=== PATIENT | female | born 1945 | race Caucasian/White ===

== ENCOUNTER 2017-12-06 09:37 | Emergency (ER) | payer MEDICARE, BC ==
[2017-12-06] MEDS ORDERED: ONDANSETRON 4 MG/2 ML VIAL IVP STA (09:58)
[2017-12-06] MEDS ORDERED: SODIUM CHLORIDE 0.9% 1,000 ML IV STA (09:58)
--- NOTE | 2017-12-06 10:04 | ED ---
General Adult HPI - General Chief complaint: Nausea/Vomiting/Diarrhea Stated complaint: vomiting Time Seen by Provider: 12/06/17 09:45 Source: patient, RN notes reviewed Mode of arrival: wheelchair Limitations: no limitations - History of Present Illness Initial comments: This is a 72-year-old female presents to the emergency department with a past medical history significant for depression. Patient states she started new depression medication 1 week ago and since Friday she has been having vomiting and diarrhea. Patient states she stopped the medication on Friday but continues to have vomiting and diarrhea today. Patient denies any abdominal pain. Patient denies any recent use of antibiotics. Patient denies any fever chills. Patient denies any chest pain difficulty breathing or shortness of breath. Patient denies any headache patient denies numbness weakness. Patient denies lightheadedness or dizziness. Patient denies any dysuria hematuria urinary frequency. - Related Data Home Medications Medication Instructions Recorded Confirmed Citalopram Hydrobromide [CeleXA] 20 mg PO DAILY 09/28/13 07/12/15 Atorvastatin [Lipitor] 40 mg PO DAILY 07/12/15 07/12/15 Omeprazole [PriLOSEC] 40 mg PO DAILY 07/12/15 07/12/15 buPROPion HCL [Bupropion Xl] 150 mg PO DAILY 07/12/15 07/12/15 Previous Rx's Medication Instructions Recorded Ondansetron Odt [Zofran Odt] 4 mg PO Q8HR PRN #10 tab 12/06/17 Allergies Allergy/AdvReac Type Severity Reaction Status Date / Time sulfamethoxazole Allergy Rash/Hives Verified 12/06/17 09:48 [From Bactrim] trimethoprim [From Bactrim] Allergy Rash/Hives Verified 12/06/17 09:48 Review of Systems ROS Statement: Those systems with pertinent positive or pertinent negative responses have been documented in the HPI. ROS Other: All systems not noted in ROS Statement are negative. Past Medical History Past Medical History: Musculoskeletal Disorder Additional Past Medical History / Comment(s): depression History of Any Multi-Drug Resistant Organisms: None Reported Past Surgical History: Bowel Resection, Hysterectomy Additional Past Surgical History / Comment(s): breast augmentation, cataract sx Past Anesthesia/Blood Transfusion Reactions: No Reported Reaction Past Psychological History: Anxiety, Depression Smoking Status: Former smoker Past Alcohol Use History: Rare Past Drug Use History: None Reported - Past Family History Father Family Medical History: Cancer Additional Family Medical History / Comment(s): lung General Exam - General Exam Comments Initial Comments: GENERAL: Patient is well-developed and well-nourished. Patient is nontoxic and well- hydrated and is in mild distress. ENT: Neck is soft and supple. No significant lymphadenopathy is noted. Oropharynx is clear. Moist mucous membranes. EYES: The sclera were anicteric and conjunctiva were pink and moist. Extraocular movements were intact and pupils were equal round and reactive to light. Eyelids were unremarkable. PULMONARY: Unlabored respirations. Good breath sounds bilaterally. No audible rales rhonchi or wheezing was noted. CARDIOVASCULAR: There is a regular rate and rhythm without any murmurs gallops or rubs. ABDOMEN: Soft and nontender with normal bowel sounds. No palpable organomegaly was noted. There is no palpable pulsatile mass. SKIN: Skin is clear with no lesions or rashes and otherwise unremarkable. NEUROLOGIC: Patient is alert and oriented x3. Cranial nerves II through XII are grossly intact. Motor and sensory are also intact. Normal speech, volume and content. Symmetrical smile. MUSCULOSKELETAL: Normal extremities with adequate strength and full range of motion. No lower extremity swelling or edema. No calf tenderness. LYMPHATICS: No significant lymphadenopathy is noted PSYCHIATRIC: Normal psychiatric evaluation. Limitations: no limitations Course Vital Signs 12/06/17 12/06/17 09:46 10:48 Temperature 98.3 F Pulse Rate 80 78 Respiratory 20 16 Rate Blood Pressure 164/87 167/78 O2 Sat by Pulse 100 98 Oximetry Medical Decision Making - Medical Decision Making I will back into reevaluate the patient she was abdominal pain free and nausea free. Patient states she felt considerably better after we hydrated her and she was looking to go home at this point time. Patient states she'll talk to her primary medical care doctor about her new medication and go from there. - Lab Data Result diagrams: 12/06/17 10:08 12/06/17 10:08 Lab Results 12/06/17 12/06/17 12/06/17 Range/Units 10:08 10:08 11:00 WBC 5.0 (3.8-10.6) k/uL RBC 4.56 (3.80-5.40) m/uL Hgb 13.8 (11.4-16.0) gm/dL Hct 42.4 (34.0-46.0) % MCV 93.1 (80.0-100.0) fL MCH 30.2 (25.0-35.0) pg MCHC 32.5 (31.0-37.0) g/dL RDW 12.9 (11.5-15.5) % Plt Count 246 (150-450) k/uL Neutrophils % 53 % Lymphocytes % 34 % Monocytes % 6 % Eosinophils % 2 % Basophils % 1 % Neutrophils # 2.7 (1.3-7.7) k/uL Lymphocytes # 1.7 (1.0-4.8) k/uL Monocytes # 0.3 (0-1.0) k/uL Eosinophils # 0.1 (0-0.7) k/uL Basophils # 0.0 (0-0.2) k/uL Sodium 140 (137-145) mmol/L Potassium 3.8 (3.5-5.1) mmol/L Chloride 108 H (98-107) mmol/L Carbon Dioxide 20 L (22-30) mmol/L Anion Gap 12 mmol/L BUN 14 (7-17) mg/dL Creatinine 0.82 (0.52-1.04) mg/dL Est GFR (CKD-EPI)AfAm 82 (>60 ml/min/1.73 sqM) Est GFR (CKD-EPI)NonAf 71 (>60 ml/min/1.73 sqM) Glucose 92 (74-99) mg/dL Calcium 9.8 (8.4-10.2) mg/dL Total Bilirubin 0.8 (0.2-1.3) mg/dL AST 31 (14-36) U/L ALT 70 H (9-52) U/L Alkaline Phosphatase 84 (38-126) U/L Total Protein 6.9 (6.3-8.2) g/dL Albumin 4.1 (3.5-5.0) g/dL Amylase 62 (30-110) U/L Lipase 44 (23-300) U/L Urine Color Light Yellow Urine Appearance Clear (Clear) Urine pH 6.0 (5.0-8.0) Ur Specific [place] 1.009 (1.001-1.035) Urine Protein Negative (Negative) Urine Glucose (UA) Negative (Negative) Urine Ketones 2+ H (Negative) Urine Blood Negative (Negative) Urine Nitrite Negative (Negative) Urine Bilirubin Negative (Negative) Urine Urobilinogen <2.0 (<2.0) mg/dL Ur Leukocyte Esterase Negative (Negative) Disposition Clinical Impression: Adverse effects of medication, Acute vomiting Disposition: HOME SELF-CARE Condition: Good Instructions: Acute Nausea and Vomiting (ED) Prescriptions: Ondansetron Odt [Zofran Odt] 4 mg PO Q8HR PRN #10 tab PRN Reason: Nausea Is patient prescribed a controlled substance at d/c from ED?: No Referrals: Carla Connell III, MD [Primary Care Provider] - 1-2 days Time of Disposition: 11:40
[2017-12-06 10:24] LABS: Basophils % (A) 1 %; Eosinophils # (A) 0.1 k/uL (0-0.7); Eosinophils % (A) 2 %; HCT 42.4 % (34.0-46.0); HGB 13.8 gm/dL (11.4-16.0); Lymphocytes # (A) 1.7 k/uL (1.0-4.8); Lymphocytes % (A) 34 %; MCH 30.2 pg (25.0-35.0); MCHC 32.5 g/dL (31.0-37.0); MCV 93.1 fL (80.0-100.0); Mean Platelet Volume 6.4; Monocytes # (A) 0.3 k/uL (0-1.0); Monocytes % (A) 6 %; Neutrophils # (A) 2.7 k/uL (1.3-7.7); Neutrophils % (A) 53 %; Platelet Count 246 k/uL (150-450); RBC 4.56 m/uL (3.80-5.40); RDW 12.9 % (11.5-15.5)
[2017-12-06 10:38] LABS: Albumin 4.1 g/dL (3.5-5.0); Calcium 9.8 mg/dL (8.4-10.2); Potassium 3.8 mmol/L (3.5-5.1); Total Bilirubin 0.8 mg/dL (0.2-1.3); Total Protein 6.9 g/dL (6.3-8.2)
[2017-12-06 11:03] VITALS: RESP 16
[2017-12-06 11:32] LABS: Appearance,Urine Clear (Clear); Bilirubin,Urine Negative (Negative); Blood,Urine Negative (Negative); Color,Urine Light Yellow; Glucose,Urine (UA) Negative (Negative); Ketones,Urine 2+ (Negative); Leukocyte Esterase,Urine Negative (Negative); Nitrite,Urine Negative (Negative); Protein,Urine Negative (Negative); Specific Gravity,Urine 1.009 (1.001-1.035); Urobilinogen,Urine <2.0 mg/dL (<2.0)
[2017-12-06 12:19] VITALS: BP 165/74; PULSE 81; TEMP 98.4
== END 2017-12-06 12:00 | disposition home or self-care (01) ==
LOC: EC 09:37
DX: R11.10 Vomiting, unspecified (principal); T43.205A Adverse effect of unspecified antidepressants, initial encounter; R19.7 Diarrhea, unspecified; F32.9 Major depressive disorder, single episode, unspecified; F41.9 Anxiety disorder, unspecified; Z87.891 Personal history of nicotine dependence; Z79.899 Other long term (current) drug therapy; Z88.2 Allergy status to sulfonamides; Z90.49 Acquired absence of other specified parts of digestive tract
CPT/HCPCS: 36415; 80053; 82150; 83690; 85025; 81003; 99284; 96374; 96361 ×2; J2405

== ENCOUNTER → 2018-06-25 | Outpatient (CLI) | payer MEDICARE, BC ==
--- NOTE | 2018-07-01 09:21 | P.ARTDOP ---
Arterial Doppler LOWER EXTREMITY ARTERIAL DOPPLER: DATE OF SERVICE: 06/25/2018 Reason for study: Venous stasis disease. Doppler waveforms: Multiphasic bilaterally throughout. Pulse volume recording: Normal configuration. Pressure gradients: None. Ankle-brachial indices: Greater than 1 bilaterally. Toe pressures: [] on the right, [] on the left Impression: Normal study.
== END ==
LOC: RADUSWWP 09:29
PROVIDERS: ATTEND Family Medicine
DX: I73.9 Peripheral vascular disease, unspecified (principal)
CPT/HCPCS: 93923

== ENCOUNTER → 2018-07-03 | Outpatient (CLI) | payer MEDICARE, BC ==
[~2018-07-03] MED LIST: DENOSUMAB 60 MG/ML 1 ML SYRINGE SQ ONE
[2018-07-03 11:33] VITALS: BP 133/70; PULSE 71; RESP 16; TEMP 97.7
== END | disposition home or self-care (01) ==
LOC: PROCWHC3 10:40
PROVIDERS: ATTEND Family Medicine
DX: M81.0 Age-related osteoporosis without current pathological fracture (principal)
CPT/HCPCS: 96372; J0897

== ENCOUNTER → 2019-01-12 | Outpatient (CLI) | payer MEDICARE, BC ==
[~2019-01-12] MED LIST changes: +DENOSUMAB 60 MG/ML 1 ML SYRINGE SQ NR; -DENOSUMAB 60 MG/ML 1 ML SYRINGE SQ ONE
[2019-01-12 14:11] VITALS: BP 147/83; PULSE 71; RESP 16; TEMP 98.2
== END | disposition home or self-care (01) ==
LOC: PROCWHC3 12:46
PROVIDERS: ATTEND Family Medicine
DX: M81.0 Age-related osteoporosis without current pathological fracture (principal)
CPT/HCPCS: 96372; J0897

== ENCOUNTER → 2019-09-23 | Outpatient (CLI) | payer MEDICARE, BC ==
[2019-09-23 11:34] VITALS: BP 151/79; PULSE 82; RESP 16; TEMP 98.5
== END | disposition home or self-care (01) ==
LOC: PROCWHC3 11:23
PROVIDERS: ATTEND Family Medicine
DX: M81.0 Age-related osteoporosis without current pathological fracture (principal)
CPT/HCPCS: 96372; J0897

== ENCOUNTER → 2019-12-08 | Outpatient (CLI) | payer MEDICARE, BC ==
--- NOTE | 2019-12-08 12:44 | XR ---
EXAMINATION TYPE: XR chest 2V DATE OF EXAM: 12/08/2019 COMPARISON: 04/20/2011 HISTORY: 74-year-old female with cough TECHNIQUE: Frontal and lateral views FINDINGS: Densely calcified bilateral breast implants. Heart normal size. Aorta and pulmonary vasculature withi n normal limits. No consolidation or pleural effusion seen. Cholecystectomy clips. IMPRESSION: Densely calcified bilateral breast implants. No acute cardiopulmonary process seen.
== END | disposition home or self-care (01) ==
LOC: RADXRMAIN 12:07
PROVIDERS: ATTEND Family Medicine
DX: R05 Cough (principal); Z98.82 Breast implant status
CPT/HCPCS: 71046

== ENCOUNTER → 2019-12-21 | Outpatient (CLI) | payer MEDICARE, BC ==
--- NOTE | 2019-12-21 09:13 | CT ---
EXAMINATION TYPE: CT chest w con DATE OF EXAM: 12/21/2019 COMPARISON: Chest x-ray December 08, 2019 HISTORY: Cough CT DLP: 473 mGycm. Automated Exposure Control for Dose Reduction was Utilized. TECHNIQUE: CT scan of the thorax is performed following with IV Contrast, patient injected with 80 m L of Isovue 300. FINDINGS: LUNGS: Mild linear and dependent atelectasis towards the diaphragm. No suspicious focal consolidation or groundglass opacity. No concerning pulmonary nodules or masses. Slightly elevated left hemidiaphr agm. There is no pleural effusion or pneumothorax seen. The tracheobronchial tree is patent. MEDIASTINUM: There are no greater than 1 cm hilar or mediastinal lymph nodes. No cardiomegaly or pe ricardial effusion is seen. Coronary artery calcifications are present which is noted marker for und erlying coronary artery disease. OTHER: Cholecystectomy clips noted. S-shaped scoliosis with multilevel mild to moderate spurring in t he spine. There are rim calcified bilateral subglandular implants. Some lobulated low dense material along the implant margin favors fibroglandular tissue though is martir rly isodense to the central portion of the implant making periImplant fluid in the differential. Christine elate clinically along with mammogram and ultrasound is advised. For reference lobulated area medial to the right breast implant noted coronal image 4. IMPRESSION: 1. No suspicious acute pulmonary process. 2. Attention to bilateral breasts as detailed above. Clinical correlation and follow-up advised.
== END | disposition home or self-care (01) ==
LOC: RADCTMAIN 06:59
PROVIDERS: ATTEND Internal Medicine Geriatric Medicine
DX: R05 Cough (principal)
CPT/HCPCS: 82565; 84520; 71260; 36415; Q9967

== ENCOUNTER → 2020-01-26 | Day surgery (SDC) | payer MEDICARE, BC ==
[2020-01-13 11:06] VITALS: BMI 25.4
[2020-01-26 06:55] VITALS: BP 133/62; PULSE 76; RESP 16; TEMP 97.8
--- NOTE | 2020-02-08 08:11 | CDI ---
Date: 02.08.2020 CDS/Data Collection Technician Name: Danna Vela Phone: If any questions, call [facility] [employer] at [phone] Patient Name: Susanna Duarte Admit Date 01.26.20 Discharge Date: 01.26.20 ATTENTION: The [facility] Coding Staff appreciate your assistance in clarifying documentation. Please respond to the clarification below the line at the bottom and electronically sign. The [facility] Coding staff will review the response and follow-up if needed. Please note: Queries are made part of the Legal Health Record. If you have any questions, please contact the [employer]. Dear Dr. Lozano In order to code to the greatest specificity and for the greatest reimbursement I need the following information: On the Manometry/PH 24 hr study it is missing the Impression/Diagnosis. Please document. Thank you for your kind consideration. MTDD
--- NOTE | 2020-02-23 10:56 | PCN ---
PROCEDURE NOTE DATE OF PROCEDURE: 01/26/2020 PROCEDURE PERFORMED: Impedance, reflex monitoring. PREOPERATIVE DIAGNOSIS: Chronic cough. REQUESTING PHYSICIAN: Dr. Larson and Dr. Johnson. BRIEF HISTORY: Patient is a 74-year-old white female with history of GERD and chronic cough on omeprazole 20 mg daily, despite which continues to have persistent cough, hence scheduled for reflux monitoring study. PROCEDURE IN DETAIL: The probe was passed from the external nostril after adequate calibration, was gently advanced into the esophagus and was positioned about the lower esophageal sphincter. This study was performed for a total of 12 hours, 29 minutes. Following are the study results: 1. Acid exposure A, upright reflux 0.1%, the common reflux 0.2%, total reflux 1.2% (Normal less than 4.2%). 2. Syd DeMeester score analysis for acid exposure is 1.1 (normal less than 14.7.). 3. Non acid reflux total episodes 132, upright episodes 40, drip episodes were 92. (Normal less than 73). 4. Symptom correlation with reflux: A: Cough 98%, Heartburn 95%. INTERPRETATION: The above ambulatory pH study shows no significant evidence of acid reflux episodes. However, the patient had several of non-acid reflux episodes that correlated with chronic cough. Of note, the patient has been on Prilosec 20 mg daily during the study. Indicating that she does have an adequate acid suppressive at this time. MMODL / IJN: [id number] /
== END ==
LOC: ORWHC2ENDO 06:38
PROVIDERS: ATTEND Internal Medicine Gastroenterology
DX: K21.9 Gastro-esophageal reflux disease without esophagitis (principal)
CPT/HCPCS: 91038

== ENCOUNTER → 2020-02-03 | Outpatient (CLI) | payer MEDICARE, BC ==
--- NOTE | 2020-02-03 14:22 | USB ---
Reason for exam: clinical finding. History: Patient is postmenopausal. Silicone gel implants in both breasts. Silicone gel implant in the left breast. Silicone gel implant in the right breast. 3 excisional biopsies of the right breast. Took estrogen for 29 years. Indicated problem(s): palpable abnormality in both breasts. Physical Findings: Nurse did not find any significant physical abnormalities on exam. US Breast BILAT Right complete breast ultrasound includes all four quadrants, the retroareolar region and axilla. Finding demonstrates a 1.2 x 1.3 x 0.2cm mixed lesion at 11 o'clock. Left complete breast ultrasound includes all four quadrants, the retroareolar region and axilla. Finding demonstrates no cystic or solid lesion seen. These results were verbally communicated with the patient and result sheet given to the patient on 02/03/20. ASSESSMENT: Probably benign, BI-RAD 3 RECOMMENDATION: Ultrasound of the right breast in 6 months.
== END | disposition home or self-care (01) ==
LOC: RADUSWWP 12:00
PROVIDERS: ATTEND Family Medicine
DX: I73.9 Peripheral vascular disease, unspecified (principal)

== ENCOUNTER → 2020-03-03 | Outpatient (CLI) | payer MEDICARE, BC ==
--- NOTE | 2020-03-08 13:19 | P.ARTDOP ---
Arterial Doppler LOWER EXTREMITY ARTERIAL DOPPLER: DATE OF SERVICE: 03/03/2020 Reason for study: Suspected vascular disease. Doppler waveforms: Multiphasic bilaterally throughout. Pulse volume recording: []. Pressure gradients: None. Ankle-brachial indices: Greater than 1 bilaterally. Toe brachial indices: 0.88 on the right, 0.77 on the left Impression: Normal study.
== END | disposition home or self-care (01) ==
LOC: RADUSWWP 13:57
PROVIDERS: ATTEND Family Medicine
DX: I73.9 Peripheral vascular disease, unspecified (principal)
CPT/HCPCS: 93922

== ENCOUNTER → 2020-03-30 | Outpatient (CLI) | payer MEDICARE, BC ==
[2020-03-30 11:10] VITALS: BP 151/78; PULSE 85; RESP 16; TEMP 98.1
== END | disposition home or self-care (01) ==
LOC: PROCWHC3 10:46
PROVIDERS: ATTEND Family Medicine
DX: M81.0 Age-related osteoporosis without current pathological fracture (principal)
CPT/HCPCS: 96372; J0897

== ENCOUNTER → 2020-08-28 | Outpatient (CLI) | payer MEDICARE, BC ==
--- NOTE | 2020-08-29 10:19 | USB ---
Reason for exam: follow-up at short interval from prior study. History: Patient is postmenopausal. Silicone gel implants in both breasts. Silicone gel implant in the left breast. Silicone gel implant in the right breast. 3 excisional biopsies of the right breast. Took estrogen for 29 years. Physical Findings: Nurse Summary: right palpable 1 x 0.5cm, movable, bilateral firm nonmovable implants (nurse ts). US Breast RT Right complete breast ultrasound includes all four quadrants, the retroareolar region and axilla. Finding demonstrates a 0.9 x 1.3 x 0.2cm oval, hypoechoic lesion at 11 o'clock and a 0.9 x 1.4 x 1.0cm oval lymph node at the axilla. These results were verbally communicated with the patient and result sheet given to the patient on 08/28/20. ASSESSMENT: Benign, BI-RAD 2 RECOMMENDATION: Follow-up diagnostic mammogram of both breasts in 6 months.
== END | disposition home or self-care (01) ==
LOC: RADUSWWP 14:47
PROVIDERS: ATTEND Family Medicine
DX: N64.59 Other signs and symptoms in breast (principal); Z78.0 Asymptomatic menopausal state

== ENCOUNTER → 2020-09-29 | Outpatient (CLI) | payer MEDICARE, BC ==
[2020-09-29 13:14] VITALS: BP 131/73; PULSE 86; RESP 18; TEMP 98.2
[2020-09-29] MEDS: DENOSUMAB 60 MG/ML 1 ML SYRINGE SQ NR (13:20)
== END ==
LOC: PROCWHC3 12:50
PROVIDERS: ATTEND Family Medicine
DX: M81.0 Age-related osteoporosis without current pathological fracture (principal); Z87.891 Personal history of nicotine dependence; Z88.2 Allergy status to sulfonamides
CPT/HCPCS: 96372; J0897

== ENCOUNTER → 2020-10-16 | Outpatient (CLI) | payer MEDICARE, BC ==
--- NOTE | 2020-10-16 15:58 | BD ---
EXAMINATION TYPE: Axial Bone Density DATE OF EXAM: 10/16/2020 COMPARISON: NONE CLINICAL HISTORY: Height: 59.5 IN Weight: 131 LBS FRAX RISK QUESTIONS: Secondary Osteoporosis: 3. Menopause before 45: TOTAL HYST AGE 25 RISK FACTORS HISTORY OF: Family History of Osteoporosis: SELF Active: YES Postmenopausal woman: TOTAL HYST AGE 25 Take estrogen and/or progesterone medications: NOT NOW How long: TOOK FOR 5 YEARS AFTER HYSTERECTOMY MEDICATIONS: Osteoporosis Medications: YES Which medication: Prolia How Lon YEARS Additional Medications: PROLIA, VIT D, BLOOD PRESSURE MED, ANTI DEPRESSANT, ANTI DEPRESSANT BOOSTER, VIT B12, EXAM MEASUREMENTS: Bone mineral densitometry was performed using the [employer] System. Bone mineral density as measured about the Lumbar spine is: ----- L1-L4(G/cm2): 0.972 T Score Values are as follows: ----- L2: -2.6 ----- L3: -1.5 ----- L4: -0.7 ----- L1-L4: -1.7 Bone mineral density BASELINE Bone mineral density about the R hip (g/cm2): 0.774 Bone mineral density about the L hip (g/cm2): 0.742 T Score values are as follows: -----R Neck: -1.9 -----L Neck: -2.1 -----R Total: -2.0 -----L Total: -2.4 Bone mineral density BASELINE IMPRESSION: Osteopenia. NOTE: T-SCORE=SD OF THE YOUNG ADULT MEAN.
== END | disposition home or self-care (01) ==
LOC: RADBDWWP 12:16
PROVIDERS: ATTEND Family Medicine
DX: M85.80 Other specified disorders of bone density and structure, unspecified site (principal); Z78.0 Asymptomatic menopausal state
CPT/HCPCS: 77080

== ENCOUNTER → 2021-03-20 | Outpatient (CLI) | payer MEDICARE, BC ==
--- NOTE | 2021-03-20 12:22 | MM ---
Reason for exam: additional evaluation requested from prior study. Last mammogram was performed 21 years and 5 months ago. History: Patient is postmenopausal. Silicone gel implants in both breasts. Silicone gel implant in the left breast. Silicone gel implant in the right breast. 3 excisional biopsies of the right breast. Took estrogen for 29 years. Physical Findings: Nurse did not find any significant physical abnormalities on exam. MG 3D Diag Mammo Imp W/Cad GAVIN Bilateral CC, MLO, and ID view(s) were taken. Prior study comparison: August 28, 2020, right breast US breast RT. No suspicious calcifications or masses. Bilateral implants demonstrate stable leak. These results were verbally communicated with the patient and result sheet given to the patient on 03/20/21. ASSESSMENT: Benign, BI-RAD 2 RECOMMENDATION: Follow-up diagnostic mammogram of both breasts in 1 year.
== END | disposition home or self-care (01) ==
LOC: RADMAMWWP 09:25
PROVIDERS: ATTEND Family Medicine
DX: R92.8 Other abnormal and inconclusive findings on diagnostic imaging of breast (principal); Z78.0 Asymptomatic menopausal state
CPT/HCPCS: 77066; G0279; 77062

== ENCOUNTER → 2021-03-27 | Day surgery (SDC) | payer MEDICARE, BC ==
[2021-03-20 17:07] VITALS: BMI 25.0
[~2021-03-27] MED LIST changes: +ASPIRIN 81 MG PO SCH; +ATORVASTATIN 40 MG TAB PO SCH; +BENZOCAINE SPRAY 1 CAN TOPICAL ONE; +CHOLECALCIFEROL 25 MCG (1000 IU) TABLET PO SCH; +CITALOPRAM HYDROBROMIDE 20 MG TAB PO SCH; +CYANOCOBALAMIN 500 MCG TAB PO SCH; -DENOSUMAB 60 MG/ML 1 ML SYRINGE SQ NR; +DENOSUMAB 60 MG/ML 1 ML SYRINGE SQ SCH; +LOSARTAN 50 MG TAB PO SCH; +PANTOPRAZOLE 40 MG TABLET PO SCH; +SODIUM CHLORIDE 0.9% 1,000 ML IV SCH; +SODIUM CHLORIDE 0.9% 500 ML 500 ML IV ONE; +amLODIPine 5 MG TAB PO SCH; +buPROPion SR 150 MG TABLET.ER PO SCH; +buPROPion XL 150 MG TAB.ER.24H PO SCH; +fentaNYL (PF) 50 MCG/ML 2 ML AMP IV ONE
[2021-03-27 06:38] VITALS: TEMP 97.9
[2021-03-27] MEDS: MIDAZOLAM 2 MG/2 ML VIAL IV ONE ×2 (07:11→07:15)
[2021-03-27 08:00] VITALS: RESP 16
--- NOTE | 2021-03-27 11:14 | ECHOT ---
TRANSESOPHAGEAL ECHOCARDIOGRAM INDICATION: Evaluation of mitral valve. PROCEDURE DESCRIPTION: After explaining the procedure to the patient, its risks and complications, blood pressure, heart rate and O2 saturation were monitored. The throat was sprayed with Cetacaine. She received 2 mg intravenous Versed, 50 mcg intravenous fentanyl. The probe was introduced into the esophagus without difficulty. Images were obtained. Following that, the probe was removed. There was no immediate complication. FINDINGS: Left atrial size is normal. Left atrial appendage is normal. Left ventricular size is normal. The left ventricular systolic function is 50% to 55%. Chiari network was noted in the right atrium. The aortic valve appears to be normal. Mitral valve revealed mild thickening of the mitral valve leaflets with mild myxomatous changes. Tricuspid valve is normal. Descending thoracic aorta appears to be normal. Contrast bubble study revealed no shunting across the interatrial septum. No pericardial effusion was noted. Pulse wave and color Doppler were obtained and revealed mild tricuspid with moderate central multiple-jet mitral regurgitation. No shunting was noted by color Doppler study. CONCLUSION: 1. Normal left ventricular size with ejection fraction 50% to 55%. 2. Thickened mitral valve leaflets with mild myxomatous changes and evidence of moderate multiple-jet central mitral regurgitation. 3. Mild tricuspid regurgitation. 4. No shunting across the interatrial septum. 5. No pericardial effusion. MMODL / IJN: [id number] /
[2021-03-27 11:17] VITALS: BP 144/68; PULSE 64
== END | disposition home or self-care (01) ==
LOC: CATHCVL 05:53
PROVIDERS: ATTEND Internal Medicine Interventional Cardiology
DX: I08.1 Rheumatic disorders of both mitral and tricuspid valves (principal); I44.7 Left bundle-branch block, unspecified; E78.2 Mixed hyperlipidemia; I10 Essential (primary) hypertension; Z20.822 Contact with and (suspected) exposure to COVID-19; Z72.0 Tobacco use; Z82.49 Family history of ischemic heart disease and other diseases of the circulatory system; Z79.82 Long term (current) use of aspirin; Z79.899 Other long term (current) drug therapy; Z88.2 Allergy status to sulfonamides
CPT/HCPCS: 93312; 93320; 93325; 87635; J2250; J3010

== ENCOUNTER → 2021-05-25 | Outpatient (CLI) | payer MEDICARE, BC ==
[~2021-05-25] MED LIST changes: -ASPIRIN 81 MG PO SCH; -ATORVASTATIN 40 MG TAB PO SCH; -BENZOCAINE SPRAY 1 CAN TOPICAL ONE; -CHOLECALCIFEROL 25 MCG (1000 IU) TABLET PO SCH; -CITALOPRAM HYDROBROMIDE 20 MG TAB PO SCH; -CYANOCOBALAMIN 500 MCG TAB PO SCH; +DENOSUMAB 60 MG/ML 1 ML SYRINGE SQ NR; -DENOSUMAB 60 MG/ML 1 ML SYRINGE SQ SCH; -LOSARTAN 50 MG TAB PO SCH; -PANTOPRAZOLE 40 MG TABLET PO SCH; -SODIUM CHLORIDE 0.9% 1,000 ML IV SCH; -SODIUM CHLORIDE 0.9% 500 ML 500 ML IV ONE; -amLODIPine 5 MG TAB PO SCH; -buPROPion SR 150 MG TABLET.ER PO SCH; -buPROPion XL 150 MG TAB.ER.24H PO SCH; -fentaNYL (PF) 50 MCG/ML 2 ML AMP IV ONE
[2021-05-25 10:49] VITALS: BP 141/68; PULSE 78; RESP 16; TEMP 97.8
== END ==
LOC: PROCWHC3 10:20
PROVIDERS: ATTEND Family Medicine
DX: M81.0 Age-related osteoporosis without current pathological fracture (principal); Z87.891 Personal history of nicotine dependence; Z88.2 Allergy status to sulfonamides

== ENCOUNTER 2021-10-31 15:19 | Emergency (ER) | payer MEDICARE, BC ==
--- NOTE | 2021-10-31 16:22 | ED ---
General Adult HPI - General Chief complaint: Upper Respiratory Infection Stated complaint: covid+, sent by PCP Time Seen by Provider: 10/31/21 15:56 Source: patient Mode of arrival: ambulatory Limitations: no limitations - History of Present Illness Initial comments: Dictation was produced using [employer] dictation software. please excuse any grammatical, word or spelling errors. Chief Complaint: Patient is 76-year-old female told to come to the emergency department for evaluation for respiratory infectious symptoms History of Present Illness: Patient's 76-year-old female who is told to come to the emergency department for concerns of COVID-19. Patient has been around family members all tested positive for rhinovirus. She was sick for proximally 7 days. She had a conversation with a primary care doctor and was instructed to come to the emergency department for evaluation. Patient has been having productive cough, fever. She did have some symptoms of diarrhea however that all resolved on its own. She likely had contracted illness from family. Patient denies any history of COPD or asthma. The ROS documented in this emergency department record has been reviewed and confirmed by me. Those systems with pertinent positive or negative responses have been documented in the HPI. All other systems are other negative and/or noncontributory. PHYSICAL EXAM: General Impression: Alert and oriented x3, not in acute distress HEENT: Normocephalic atraumatic, extra-ocular movements intact, pupils equal and reactive to light bilaterally, mucous membranes moist. Cardiovascular: Heart regular rate and rhythm Chest: Able to complete full sentences, no retractions, no tachypnea Abdomen: abdomen soft, non-tender, non-distended, no organomegaly Musculoskeletal: Pulses present and equal in all extremities, no peripheral edema Motor: no focal deficits noted Neurological: CN II-XII grossly intact, no focal motor or sensory deficits noted Skin: Intact with no visualized rashes Psych: Normal affect and mood ED course: 76-year-old well-appearing female with minimal comorbidities presents to the emergency department for symptoms of respiratory infectious symptoms. Vital signs upon arrival are within acceptable limits. Patient is well- appearing. Patient not showing any signs of respiratory distress patient is not hypoxic or tachypneic. Patient positive for COVID-19. Patient meets criteria for monoclonal antibody infusion. Patient discussed with risk and benefits for monoclonal antibody infusion. Patient is agreeable. Patient given infusion. Patient discharged. - Related Data Home Medications Medication Instructions Recorded Confirmed Atorvastatin [Lipitor] 40 mg PO HS 07/12/15 05/25/21 buPROPion HCL [Bupropion Xl] 300 mg PO QAM 07/12/15 05/25/21 Denosumab [Prolia] 60 mg SQ Q180D 07/03/18 05/25/21 Cholecalciferol [Vitamin D3 (25 1,000 unit PO DAILY 01/12/19 05/25/21 Mcg = 1000 Iu)] Cyanocobalamin (Vitamin B-12) 1,000 mcg PO DAILY 01/12/19 05/25/21 [Vitamin B-12] amLODIPine [Norvasc] 5 mg PO DAILY 09/23/19 05/25/21 Aspirin [Adult Low Dose Aspirin EC] 81 mg PO DAILY 01/13/20 05/25/21 Citalopram Hydrobromide 20 mg PO DAILY 01/13/20 05/25/21 [Citalopram HBr] Losartan [Cozaar] 50 mg PO HS 01/13/20 05/25/21 Omeprazole 20 mg PO DAILY 01/13/20 05/25/21 buPROPion HCL [buPROPion HCL SR] 150 mg PO HS 01/13/20 05/25/21 traZODone HCL [TraZODone HCl] 50 mg PO DAILY 05/25/21 05/25/21 Allergies Allergy/AdvReac Type Severity Reaction Status Date / Time sulfamethoxazole Allergy Rash/Hives Verified 10/31/21 15:40 [From Bactrim] trimethoprim [From Bactrim] Allergy Rash/Hives Verified 10/31/21 15:40 Review of Systems ROS Statement: Those systems with pertinent positive or pertinent negative responses have been documented in the HPI. ROS Other: All systems not noted in ROS Statement are negative. Past Medical History Past Medical History: GERD/Reflux, Hyperlipidemia, Hypertension, Musculoskeletal Disorder Additional Past Medical History / Comment(s): hx of chronic cough, osteoporosis History of Any Multi-Drug Resistant Organisms: None Reported Past Surgical History: Bowel Resection, Breast Surgery, Cholecystectomy, Hysterectomy Additional Past Surgical History / Comment(s): breast augmentation, cataract sx Past Anesthesia/Blood Transfusion Reactions: No Reported Reaction Past Psychological History: Anxiety, Depression Smoking Status: Former smoker Past Alcohol Use History: None Reported Past Drug Use History: None Reported - Past Family History Father Family Medical History: Cancer Additional Family Medical History / Comment(s): lung General Exam Limitations: no limitations Course Vital Signs 10/31/21 15:37 Temperature 97.8 F Pulse Rate 78 Respiratory 16 Rate Blood Pressure 124/69 O2 Sat by Pulse 96 Oximetry Medical Decision Making - Lab Data Lab Results 10/31/21 Range/Units 15:43 Coronavirus (PCR) Detected A (Not Detectd) Disposition Clinical Impression: Coronavirus infection Disposition: HOME SELF-CARE Condition: Good Instructions (If sedation given, give patient instructions): Coronavirus Disease 2019 (COVID-19) Is patient prescribed a controlled substance at d/c from ED?: No Referrals: Rafaela Hoyos MD [Primary Care Provider] - 1-2 days Time of Disposition: 17:17
[2021-10-31] MEDS ORDERED: BEBTELOVIMAB (EUA) 175 MG/2 ML VIAL IV ONE (16:30)
[2021-10-31 18:31] VITALS: BP 139/69; PULSE 67; RESP 20; TEMP 98.2
== END 2021-10-31 18:31 | disposition home or self-care (01) ==
LOC: EC 15:19
DX: U07.1 COVID-19 (principal); I10 Essential (primary) hypertension; E78.5 Hyperlipidemia, unspecified; K21.9 Gastro-esophageal reflux disease without esophagitis; M81.0 Age-related osteoporosis without current pathological fracture; F41.9 Anxiety disorder, unspecified; F32.A Depression, unspecified; Z87.891 Personal history of nicotine dependence; Z88.2 Allergy status to sulfonamides; Z79.899 Other long term (current) drug therapy
CPT/HCPCS: 99284; 87635; M0222; Q0222

== ENCOUNTER → 2022-02-25 | Outpatient (CLI) | payer MEDICARE, BC ==
--- NOTE | 2022-02-25 15:43 | MM ---
Reason for Exam: Follow-up at short interval from prior study. Last screening mammogram was performed 11 month(s) ago. Patient History: Menarche at age 12. First Full-Term at age 18. Left ovary removed at age 25. Right ovary removed at age 25. Hysterectomy at age 25. Postmenopausal. Patient used Estrogen for 29 years. Excisional Biopsy on the Right side. Excisional Biopsy on the Right side. Excisional Biopsy on the Right side. Bilateral Implants. Implant on the right side. Implant on the left side. Risk Values: Portia 5 year model risk: 1.9%. NCI Lifetime model risk: 3.6%. Prior Study Comparison: 08/19/1994 Screening Mammogram, [facility]. 10/29/1999 Bilateral Diagnostic Mammogram, [facility]. 02/03/2020 Bilateral Diagnostic Ultrasound, [facility]. 08/28/2020 Right Diagnostic Ultrasound, [facility]. 03/20/2021 Bilateral Diagnostic Mammogram, [facility]. Tissue Density: There are scattered fibroglandular densities. Findings: Bilateral prepectoral calcified breast implants are redemonstrated. Similar implant herniation medially and inferiorly on the left. Otherwise, no significant change from prior exams. Overall Assessment: Benign, BI-RAD 2 Management: Screening Mammogram of both breasts in 1 year. Further clinical evaluation and management of patient's left breast pain, possibly implant related pain. Surgical evaluation can be considered. Otherwise, patient should continue monthly self breast exams. Results were given to the patient verbally at the time of exam. Electronically signed and approved by: Garfield Pitt M.D. Radiologist
== END | disposition home or self-care (01) ==
LOC: RADMAMWWP 14:43
PROVIDERS: ATTEND Family Medicine
DX: R92.8 Other abnormal and inconclusive findings on diagnostic imaging of breast (principal); Z78.0 Asymptomatic menopausal state; Z90.721 Acquired absence of ovaries, unilateral
CPT/HCPCS: 77066; G0279; 77062

== ENCOUNTER → 2022-03-07 | Outpatient (CLI) | payer MEDICARE, BC ==
--- NOTE | 2022-03-07 12:22 | BMR ---
EXAMINATION TYPE: MR breast BILAT wo con DATE OF EXAM: 03/07/2022 COMPARISON: 3-D bilateral breast mammogram February 25, 2022 BI-RADS 2. HISTORY: Implant Herniation. Left breast pain behind nipple. No history of cancer. History of bilater al implants. History of right-sided excisional biopsy. TECHNIQUE: A series of fat and water weighted images in the long and short axis views of both breasts are obtained . Three-dimensional and additional postprocessing imaging is created on independent w orkstation and reviewed during official interpretation of this study. FINDINGS: Scattered fibroglandular tissue is redemonstrated bilaterally. No significant cystic change or focal fluid collections on T2 and STIR weighted images bilaterally. Tiny benign-appearing bilater al axillary lymph nodes are seen. No concerning axillary adenopathy is noted. Bilateral subglandular breast implants are redemonstrated. Both implants have thickened irregular wal ls with areas of linear T1 signal along the anterior aspects. There is adjacent fluid or silicone jhoana ng the medial aspect of both implants slightly thicker more prominent on the right versus left. Some additional involvement posterior inferior aspect bilaterally is present. There is fairly symmetric pr eservation of implant volume despite MRI findings consistent with bilateral rupture noted. Incidental note is made of small sized hiatal hernia. IMPRESSION: MRI findings confirm bilateral implant rupture. Recommendation: Appropriate clinical and surgical management. Continued annual bilateral breast mammo gram January 2023.
== END | disposition home or self-care (01) ==
LOC: RADMRIMAIN 08:03
PROVIDERS: ATTEND Family Medicine
DX: N64.4 Mastodynia (principal); T83.719A Erosion of other prosthetic materials to surrounding organ or tissue, initial encounter
CPT/HCPCS: 77047

== ENCOUNTER → 2022-09-10 | Outpatient (CLI) | payer MEDICARE, BC ==
--- NOTE | 2022-09-10 16:48 | US ---
EXAMINATION TYPE: US carotid duplex BILAT DATE OF EXAM: 09/10/2022 COMPARISON: NONE CLINICAL INDICATION: Female, 77 years old with history of Z86.73 PRSNL HX OF TIA AND CERB INFRACT; ri ght hand tremor TECHNIQUE: Carotid duplex ultrasound examination. Indirect Doppler criteria was utilized. FINDINGS: EXAM MEASUREMENTS: RIGHT: Peak Systolic Velocity (PSV) cm/sec ----- Right CCA: 60.4 ----- Right ICA: 121 ----- Right ECA: 73.7 ICA/CCA ratio: 2.0 RIGHT: End Diastole cm/sec ----- Right CCA: 20.1 ----- Right ICA: 46.2 ----- Right ECA: 14.1 LEFT: Peak Systolic Velocity (PSV) cm/sec ----- Left CCA: 67.6 ----- Left ICA: 65.5 ----- Left ECA: 74.3 ICA/CCA ratio: 0.97 LEFT: End Diastole cm/sec ----- Left CCA: 19.3 ----- Left ICA: 24.8 ----- Left ECA: 10.5 VERTEBRALS (direction of flow): Right Vertebral: Antegrade Left Vertebral: Antegrade Rhythm: Normal FRONT DESK MANAGER NOTES: mild atherosclerotic plaque visualized bilaterally in bulbs No significant stenosi s seen IMPRESSION: No hemodynamically significant internal carotid artery stenosis on either side. There may be a mild t o moderate stenosis proximal right ICA. Criteria for Assigning % of Stenosis / Diameter reduction (Estimation based on the indirect measurements of the internal carotid artery velocities (ICA PSV). 1. Normal (no stenosis)=ICA PSV < 125 cm/s: ratio < 2.0: ICA EDV<40 cm/s. 2. Less than 50% stenosis=ICA PSV < 125 cm/s: ratio < 2.0: ICA EDV<40 cm/s. 3. 50 to 69% stenosis=ICA PSV of 125 to 230 cm/s: ration 2.0 ? 4.0: ICA EDV 40-100 cm/s. 4. Greater than 70% stenosis to near occlusion= ICA PSV > 230 cm/s: ratio > 4.0: ICA EDV > 100 cm/s. 5. Near occlusion= ICA PSV velocities may be low or undetectable: variable ratio and ICA EDV. 6. Total occlusion=unable to detect flow.
== END | disposition home or self-care (01) ==
LOC: RADUSWWP 10:50
PROVIDERS: ATTEND Psychiatry & Neurology Neurology
DX: Z86.73 Personal history of transient ischemic attack (TIA), and cerebral infarction without residual deficits (principal)
CPT/HCPCS: 93880

== ENCOUNTER → 2022-10-18 | Outpatient (CLI) | payer MEDICARE, BC ==
[2022-10-18 12:36] VITALS: BP 115/73; PULSE 83; RESP 15; TEMP 97.6
== END ==
LOC: PROCWHC3 12:26
PROVIDERS: ATTEND Family Medicine
DX: M81.0 Age-related osteoporosis without current pathological fracture (principal)
CPT/HCPCS: 96372; J0897

== ENCOUNTER → 2023-04-24 | Outpatient (CLI) | payer MEDICARE, BC ==
[2023-04-24 14:39] VITALS: BP 144/76; PULSE 80; RESP 15; TEMP 97.7
== END ==
LOC: PROCWHC3 14:19
PROVIDERS: ATTEND Family Medicine
DX: M81.0 Age-related osteoporosis without current pathological fracture (principal)
CPT/HCPCS: 96372; J0897

== ENCOUNTER 2023-07-08 09:41 | Day surgery (SDC) | payer MEDICARE, BC ==
[2023-07-04 11:13] VITALS: BMI 23.8
[2023-07-08] MEDS: LACTATED RINGERS 1,000 ML IV SCH (10:36)
[2023-07-08 11:10] VITALS: TEMP 97.3
[2023-07-08] MEDS ORDERED: PROPOFOL 10 MG/ML 20 ML VIAL IV ONE (11:21)
--- NOTE | 2023-07-08 11:36 | P.PCN ---
Date of Procedure: 07/08/23 Procedure(s) Performed: BRIEF HISTORY: Patient is a 78-year-old pleasant white female scheduled for an elective colonoscopy as a part of evaluation of change in bowel habits for the last few months duration. PROCEDURE PERFORMED: Colonoscopy. PREOPERATIVE DIAGNOSIS: Change in bowel habits. IV sedation per Anesthesia. PROCEDURE: After informed consent was obtained, the patient, was brought into the endoscopy unit. IV sedation was administered by Anesthesia under continuous monitoring. Digital rectal examination was normal. Initially the Olympus CF-160 flexible video colonoscope was then inserted in the rectum, gradually advanced into the right colon without any difficulty. Careful examination was performed as the scope was gradually being withdrawn. Ileocolic anastomosis in the right colon appeared widely patent and normal. Mucosa of the transverse colon, descending colon, sigmoid colon, and rectum appeared normal. Retroflexion was performed in the rectum and no lesions were seen. The patient tolerated the procedure well. IMPRESSION: Normal-appearing colon from rectum to right colon with normal ileocolic anastomosis. RECOMMENDATIONS: Findings of this examination were discussed with the patient as well as a family.. She was advised to be a high-fiber diet and take fiber supplements on a regular basis.
[2023-07-08 12:22] VITALS: BP 120/81; PULSE 75; RESP 18
== END 2023-07-08 12:24 | disposition home or self-care (01) ==
LOC: ORWHC2ENDO 09:41
PROVIDERS: ATTEND Internal Medicine Gastroenterology
DX: R19.4 Change in bowel habit (principal); I10 Essential (primary) hypertension; E78.5 Hyperlipidemia, unspecified; F41.9 Anxiety disorder, unspecified; F32.A Depression, unspecified; M19.90 Unspecified osteoarthritis, unspecified site; M81.0 Age-related osteoporosis without current pathological fracture; Z88.2 Allergy status to sulfonamides; Z98.0 Intestinal bypass and anastomosis status; K21.9 Gastro-esophageal reflux disease without esophagitis; Z79.82 Long term (current) use of aspirin; Z79.899 Other long term (current) drug therapy; Z98.890 Other specified postprocedural states
CPT/HCPCS: J2704; G0121

== ENCOUNTER → 2023-07-18 | Outpatient (CLI) | payer MEDICARE, BC ==
--- NOTE | 2023-07-18 14:35 | BD ---
EXAMINATION TYPE: Axial Bone Density DATE OF EXAM: 07/18/2023 CLINICAL HISTORY: 78 years old Female. ICD-10 CODE: M81.0 AGE RELATED OSTEO Height: 59in Weight: 124lb FRAX RISK QUESTIONS: Secondary Osteoporosis: 3. Menopause before 45: yes RISK FACTORS HISTORY OF: MEDICATIONS: EXAM MEASUREMENTS: Bone mineral densitometry was performed using the [employer] System. Bone mineral density as measured about the Lumbar spine is: ----- L1-L4(G/cm2): 1.006 T Score Values are as follows: ----- L1: -2.7 ----- L2: -2.3 ----- L3: -0.9 ----- L4: -0.7 ----- L1-L4: -1.5 Z Score Values are as follows: ----- L1: -0.6 ----- L2: -0.2 ----- L3: 1.2 ----- L4: 1.4 ----- L1-L4: 0.7 Bone mineral density has: Increased 3.5% since study of: 10-16-20 Bone mineral density about the R hip (g/cm2): 0.849 Bone mineral density about the L hip (g/cm2): 0.699 T Score values are as follows: -----R Neck: -1.3 -----L Neck: -2.1 -----R Total: -1.3 -----L Total: -2.5 Z Score values are as follows: -----R Neck: 1.0 -----L Neck: 0.2 -----R Total: 0.9 -----L Total: -0.3 Bone mineral density has: Increased 5.2% since study of: 10-16-20 FRAX%s: The graph provided illustrates a 16.4% chance for a major osteoporotic fx and a 5% chance for the hips probability for fx in 10 years time. IMPRESSION: Osteoporosis (T Score less than -2.5). There is increased fracture risk and therapy is usually indicated based on age. Re-Screen 1-2 years. NOTE: T-SCORE=SD OF THE YOUNG ADULT MEAN.
--- NOTE | 2023-07-23 09:54 | MM ---
Reason for Exam: Hx of breast augmentation, asymptomatic. Last mammogram was performed 2 year(s) and 4 month(s) ago. Patient History: Menarche at age 12. First Full-Term at age 18. Left ovary removed at age 25. Right ovary removed at age 25. Hysterectomy at age 25. Postmenopausal. Patient used Estrogen for 29 years. Excisional Biopsy on the Right side. Excisional Biopsy on the Right side. Excisional Biopsy on the Right side. Bilateral Implants. Implant on the right side. Implant on the left side. Risk Values: Portia 5 year model risk: 1.8%. NCI Lifetime model risk: 3.1%. Prior Study Comparison: 10/29/1999 Bilateral Diagnostic Mammogram, [facility]. 03/20/2021 Bilateral Diagnostic Mammogram, [facility]. 02/25/2022 Bilateral MG 3D diag mammo imp w/cad GAVIN, [facility]. Tissue Density: There are scattered areas of fibroglandular density. Findings: Analyzed By CAD. There is no suspicious group of microcalcifications or new suspicious mass in either breast. Benign calcification right breast. Overall Assessment: Benign, BI-RAD 2 Management: Screening Mammogram of both breasts in 1 year. . Patient should continue monthly self-breast exams. A clinical breast exam by your physician is recommended on an annual basis. This exam should not preclude additional follow-up of suspicious palpable abnormalities. Note on Portia scores and lifetime risk: 1. A Portia score greater than 3% is considered moderate risk. If this is the case, consider specialist referral to assess eligibility for a risk reducing agent. 2. If overall lifetime risk for the development of breast cancer is 20% or higher, the patient may qualify for future screening with alternating mammogram and breast MRI. Electronically signed and approved by: Jay London M.D. Radiologis
== END | disposition home or self-care (01) ==
LOC: RADBDWWP 13:16
PROVIDERS: ATTEND Family Medicine
DX: Z12.31 Encounter for screening mammogram for malignant neoplasm of breast (principal); M85.89 Other specified disorders of bone density and structure, multiple sites; M81.0 Age-related osteoporosis without current pathological fracture; Z78.0 Asymptomatic menopausal state; Z98.82 Breast implant status
CPT/HCPCS: 77063; 77067; 77080

== ENCOUNTER → 2024-09-16 | Outpatient (CLI) | payer MEDICARE, BC ==
--- NOTE | 2024-09-17 07:43 | MM ---
Reason for Exam: Screening (asymptomatic). Last mammogram was performed 1 year(s) and 2 month(s) ago. Patient History: Menarche at age 12. First Full-Term at age 18. Left ovary removed at age 25. Right ovary removed at age 25. Hysterectomy at age 25. Postmenopausal. Patient used Estrogen for 29 years. Excisional Biopsy on the Right side. Excisional Biopsy on the Right side. Excisional Biopsy on the Right side. Bilateral Implants. Implant on the right side. Implant on the left side. Risk Values: Portia 5 year model risk: 1.8%. NCI Lifetime model risk: 2.8%. Prior Study Comparison: 03/20/2021 Bilateral Diagnostic Mammogram, [facility]. 02/25/2022 Bilateral MG 3D diag mammo imp w/cad GAVIN, [facility]. 07/18/2023 Bilateral MG 3D screening mammo w/cad, [facility]. Tissue Density: There are scattered areas of fibroglandular density. Findings: Analyzed By CAD. Stable appearance of the bilateral implants. Right breast: There is no suspicious group of microcalcifications or new suspicious mass. Left breast: There is no suspicious group of microcalcifications or new suspicious mass. Overall Assessment: Benign, BI-RAD 2 Management: Screening Mammogram of both breasts in [address] [facility] will attempt to contact patient to return for supplemental views and ultrasound if indicated. Patient should continue monthly self-breast exams. A clinical breast exam by your physician is recommended on an annual basis. This exam should not preclude additional follow-up of suspicious palpable abnormalities. Note on Portia scores and lifetime risk: 1. A Portia score greater than 3% is considered moderate risk. If this is the case, consider specialist referral to assess eligibility for a risk reducing agent. 2. If overall lifetime risk for the development of breast cancer is 20% or higher, the patient may qualify for future screening with alternating mammogram and breast MRI. [facility], , 09/17/2024 7:40 AM. Electronically signed and approved by: Jermaine Shook DO
== END | disposition home or self-care (01) ==
LOC: RADMAMWWP 15:03
PROVIDERS: ATTEND Family Medicine
DX: Z12.31 Encounter for screening mammogram for malignant neoplasm of breast (principal); R92.323 Mammographic fibroglandular density, bilateral breasts; Z98.82 Breast implant status; Z78.0 Asymptomatic menopausal state
CPT/HCPCS: 77063; 77067